=== PATIENT | female | born 1995 | race Caucasian/White ===

== ENCOUNTER → 2020-07-28 | Outpatient (CLI) | payer OTHER | LOC: LAB 10:22 | PROVIDERS: ATTEND Orthopaedic Surgery Sports Medicine | DX: Z01.812 Encounter for preprocedural laboratory examination (principal); Z20.822 Contact with and (suspected) exposure to COVID-19 ==

== ENCOUNTER → 2020-08-02 | Day surgery (SDC) | payer OTHER ==
[~2020-08-02] VITALS: Ht 188 cm; Wt 79.4 kg
--- NOTE | ~2020-08-02 | O ---
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 PROCEDURE PERFORMED: Right knee arthroscopy, partial medial and lateral meniscectomies, chondroplasty. SURGEON: Patrice Ricardo MD PRINCIPAL MECHANICAL ENGINEER: Tereza Lin PA-C ANESTHESIA: General per LMA. FLUIDS: One liter crystalloid. ESTIMATED BLOOD LOSS: Negligible. TOURNIQUET TIME: Approximately 21 minutes at 300 mmHg. DESCRIPTION OF PROCEDURE: After proper identification of the patient and operative site in the preoperative holding area, the operative site signed by myself. Prophylactic antibiotics given. The patient elected to receive a general anesthetic. She was brought back to the operative suite after induction of satisfactory general anesthesia per LMA. The right knee was examined. The patient had 1+ Estela with pivot glide, 1+ opening to varus stress at 30 degrees. Tourniquet was applied to the upper thigh. The limb was placed in an arthroscopic leg gutierrez and sterilely prepped and draped in the usual manner. Limb was elevated and exsanguinated with an Esmarch, tourniquet was inflated to 300 mmHg. Superomedial portal was created for inflow purposes. The joint was inflated with an arthroscopic pump set at 30 mmHg. An anterolateral and then an anteromedial portal were created using a spinal needle for localization. Examination of the patellofemoral joint revealed some small intraarticular loose [facility] [address] [place] [address] OPERATIVE REPORT Name: TIKI BARNES Room #: [place] [facility] Patrizia.#: [id number] Admission: 08/02/20 Attend Phys: Patrice Cardozo Discharge: Date of : 89 Report #: [id number] bodies that were carefully debrided. Patellofemoral articulation revealed a small amount of fibrillation and fraying on the more inferior aspect of the medial patellar facet, which was carefully debrided. Some thickening and scar tissue was noted in the medial gutter, which was cleared. Medial compartment knee revealed a small tear in the inner more central margin of the junction of the posterior horn and mid body. This area was carefully debrided with combination of hand and motorized instrumentation. Some very faint chondral changes were noted along the more lateral aspect of the anterior medial tibial plateau. Posterior cruciate ligament was intact, stable to probing. The ACL revealed more vertical type orientation, but was intact and stable to probing. It did take up tension with a Estela's maneuver. The lateral compartment demonstrated a complex tear of the posterior horn extending into the mid body with a displaced flap that could be flipped in and out of the joint. There was evidence of prior meniscal repair and a combination of hand and motorized instrumentation was used to perform a partial lateral meniscectomy back to a stable rim. This tear was not amenable to repair again. In the more posterior aspect of the lateral tibial plateau, there was an area of what appeared to be a previous higher grade or potentially full thickness chondral lesion where there now appeared to be a nice base layer of chondral tissue that had formed. It was thinned in this area, but the edges were smoothed and this did not require any other further treatment. The remaining meniscus was stable to probing. The knee was thoroughly irrigated with normal saline. Portals were closed with simple nylon stitches. 20 mL of 0.2% Naropin was injected around the knee incisions and into the knee joint for postoperative pain control. Sterile compressive dressing was applied. The patient may be weightbearing as tolerated. No further bracing is needed. Portals were closed with simple nylon stitches. Sterile dressing was applied. She was awakened and transferred to the recovery room in stable condition. MD DAVID NunoV/RODNEY By: [id number] Patrice Ricardo MD /nt
[2020-08-02 09:35] VITALS: BP 124/79
== END | disposition home or self-care (01) ==
LOC: OR 08:37
PROVIDERS: ATTEND Orthopaedic Surgery Sports Medicine
DX: S83.281A Other tear of lateral meniscus, current injury, right knee, initial encounter (principal); S83.241A Other tear of medial meniscus, current injury, right knee, initial encounter; M94.261 Chondromalacia, right knee; F41.9 Anxiety disorder, unspecified; Z98.890 Other specified postprocedural states; X58.XXXA Exposure to other specified factors, initial encounter; Y93.89 Activity, other specified; Y92.89 Other specified places as the place of occurrence of the external cause; Y99.8 Other external cause status
CPT/HCPCS: 50010; 50101; 50405; 56526; 57103; 57180; 57255; 58577; 58589; 62110; 62900; 70005